=== PATIENT | male | born 1985 | race Caucasian/White ===

== ENCOUNTER 2019-06-30 06:32 | Emergency (ER) | payer MEDICAID, OTHER ==
[~2019-06-30] VITALS: Ht 177.8 cm; Wt 65.0 kg
[2019-06-30 06:35] VITALS: BP 121/73
[2019-06-30] MEDS ORDERED: SULF1TAB49 PO (07:47)
== END 2019-06-30 08:13 | disposition home or self-care (01) ==
LOC: ER 06:32
DX: L03.211 Cellulitis of face (principal); F17.200 Nicotine dependence, unspecified, uncomplicated; F10.99 Alcohol use, unspecified with unspecified alcohol-induced disorder; F12.90 Cannabis use, unspecified, uncomplicated; Z86.14 Personal history of Methicillin resistant Staphylococcus aureus infection; Z79.899 Other long term (current) drug therapy; Y90.9 Presence of alcohol in blood, level not specified
CPT/HCPCS: 99283

== ENCOUNTER 2020-01-03 09:54 | Emergency (ER) | payer MEDICAID ==
[~2020-01-03] VITALS: Ht 172.7 cm; Wt 66.6 kg
[2020-01-03 09:57] VITALS: BP 123/77
== END 2020-01-03 12:10 | disposition home or self-care (01) ==
LOC: ER 09:55
DX: S20.212A Contusion of left front wall of thorax, initial encounter (principal); F12.90 Cannabis use, unspecified, uncomplicated; Z72.89 Other problems related to lifestyle; Z86.14 Personal history of Methicillin resistant Staphylococcus aureus infection; W18.39XA Other fall on same level, initial encounter; Y93.89 Activity, other specified; Y92.89 Other specified places as the place of occurrence of the external cause; Y99.8 Other external cause status
CPT/HCPCS: 99284

== ENCOUNTER 2021-03-22 15:09 | Emergency (ER) | payer MEDICAID ==
[2021-03-22 15:14] VITALS: BP 107/73
[2021-03-22] MEDS ORDERED: triamcinolone acetonide 40mg/ml inj IM ONE (15:25)
[2021-03-22] MEDS ORDERED: HYDR28CR14 TOP (15:28)
[2021-03-22] MEDS ORDERED: LORA10CA PO (15:28)
== END 2021-03-22 15:34 | disposition home or self-care (01) ==
LOC: ER 15:10
DX: L23.7 Allergic contact dermatitis due to plants, except food (principal); F12.90 Cannabis use, unspecified, uncomplicated; Z86.14 Personal history of Methicillin resistant Staphylococcus aureus infection; Z72.89 Other problems related to lifestyle; Z79.899 Other long term (current) drug therapy
CPT/HCPCS: 96372; 99283; J3301

== ENCOUNTER 2021-05-08 05:41 | Emergency (ER) | payer MEDICAID ==
[~2021-05-08] VITALS: Ht 175.3 cm; Wt 68.0 kg
[~2021-05-08 05:41] MED LIST: HYDR28CR14 TOP; LORA10CA PO
[2021-05-08 05:48] VITALS: BP 120/72
== END 2021-05-08 07:27 | disposition left against medical advice (07) ==
LOC: ER 05:42
DX: M25.561 Pain in right knee (principal); Z53.21 Procedure and treatment not carried out due to patient leaving prior to being seen by health care provider

== ENCOUNTER 2022-05-06 12:39 | Emergency (ER) | payer MEDICAID, OTHER ==
[~2022-05-06] VITALS: Ht 172.7 cm; Wt 65.9 kg
[2022-05-06 12:42] VITALS: BP 135/91
[2022-05-06] MEDS ORDERED: bacitracin 15gm ointment TP ONE (14:20)
[2022-05-06] MEDS ORDERED: LIDOcaine 1% W/epiNEPHrine 1:100,000 20ml vial IJ ONE (14:20)
[2022-05-06] MEDS ORDERED: TETanus/Pertussis (Acell)/Diphther VAC/PF (Tdap-Adult) 0.5ml syringe IMVAC ONE (14:40)
== END 2022-05-06 15:39 | disposition home or self-care (01) ==
LOC: ER 12:39
DX: S81.811A Laceration without foreign body, right lower leg, initial encounter (principal); F12.10 Cannabis abuse, uncomplicated; Z86.14 Personal history of Methicillin resistant Staphylococcus aureus infection; W19.XXXA Unspecified fall, initial encounter; Y93.89 Activity, other specified; Y92.89 Other specified places as the place of occurrence of the external cause; Y99.8 Other external cause status
CPT/HCPCS: 12002; 90471; 90715; 99284; J7030; A6258; A6449

== ENCOUNTER 2025-01-31 08:20 | Emergency (ER) | payer MEDICAID, OTHER ==
[~2025-01-31] VITALS: Ht 175.3 cm; Wt 71.0 kg
[2025-01-31] MEDS: ondansetron/PF 4mg/2ml inj IV ONE (08:41)
[2025-01-31] MEDS: morphine 4 MG/ML inj SYRINge IV ONE (08:41)
[2025-01-31] MEDS: ketorolac trometh 30MG/ML vial 30 MG/ML VIAL IV ONE (08:42)
[2025-01-31 08:49] LABS: BASOPHILS # (AUTO) 0.1 X10'3 (0-0.2); BASOPHILS % (AUTO) 0.6 % (0-1); EOSINOPHILS # (AUTO) 0.1 X10'3 (0-0.9); EOSINOPHILS % (AUTO) 1.1 % (0-6); HEMATOCRIT 47.8 % (42.0-52.0); HEMOGLOBIN 15.9 g/dl (14.0-17.9); LYMPHOCYTES # (AUTO) 2.4 X10'3 (1.1-4.8); LYMPHOCYTES % (AUTO) 22.8 % (21-51); MEAN CORPUSCULAR HGB CONC 33.3 g/dL (33.0-36.5); MEAN CORPUSCULAR VOLUME 90.1 FL (78-98); MEAN PLATELET VOLUME 7.6 FL (7.4-10.4); MONOCYTES % (AUTO) 9.5 % (2-12); NEUTROPHILS # (AUTO) 6.9 X10'3 (1.8-7.7); PLATELET COUNT 308 X10'3 (140-440); RED CELL DISTRIBUTION WIDTH 14.4 % (11.5-14.5); WHITE BLOOD COUNT 10.4 X10'3 (4.5-11.0)
[2025-01-31 08:52] VITALS: TEMP 97.8
[2025-01-31 09:17] LABS: ALBUMIN 3.9 G/DL (3.4-5.0); ANION GAP 12 (8-16); BLOOD UREA NITROGEN 15 MG/DL (7-18); BUN/CREATININE RATIO 14.6 (10.0-20.0); CALCIUM 9.3 MG/DL (8.5-10.1); CHLORIDE 102 MMOL/L (99-107); CREATINE KINASE 102 U/L (39-308); CREATININE 1.03 MG/DL (0.60-1.10); GLUCOSE 138 MG/DL (70-104); SODIUM 135 MMOL/L (135-145); TOTAL CARBON DIOXIDE 20.8 MMOL/L (24-32); eCRCL 97 ML/MIN; eGFR 81 ML/MIN
[2025-01-31 10:13] LABS: APTT 33 SECONDS (22-32)
[2025-01-31 10:24] LABS: PROTHROMBIN TIME 10.6 SECONDS (9.0-12.0)
[2025-01-31] MEDS ORDERED: HYDR-3973 PO (11:08)
[2025-01-31 12:01] VITALS: BP 146/103; PULSE 95; RESP 15; O2SAT 98
== END 2025-01-31 12:02 | disposition home or self-care (01) ==
LOC: ER 08:20
DX: S40.012A Contusion of left shoulder, initial encounter (principal); S00.81XA Abrasion of other part of head, initial encounter; F12.90 Cannabis use, unspecified, uncomplicated; V23.99XA Unspecified rider of other motorcycle injured in collision with car, pick-up truck or van in traffic accident, initial encounter; Y93.55 Activity, bike riding; Y92.89 Other specified places as the place of occurrence of the external cause; Y99.8 Other external cause status
CPT/HCPCS: 36415; 71045; 71250; 73030; 74176; 80048; 82550; 85025; 85610; 85730; 96374; 96375; 99285; J1885; J2270; J2405